=== PATIENT | female | born 1965 | race Caucasian/White ===

== ENCOUNTER 2025-04-10 08:57 | Outpatient (RCR) | payer MEDICARE, MEDICAID, SELFPAY ==
--- NOTE | 2025-04-10 13:03 | CTCFLWUP_ITS ---
Patient: AYDEE LAI : 1965 Page 2 of 2 FOLLOW UP NOTE DATE OF SERVICE: 04/10/2025 NAME: AYDEE LAI ACCOUNT: [id number] : 1965 AGE: 59 INTERVAL HISTORY: Patient is 59-year-old with complaints of appetite loss nonspecific pain and pain over her old surgical site. Patient was diagnosed with colon cancer in 2019 after she had complained for abdominal pain for 5 years. She was found to have ulcerated mass with stricture and underwent resection. Patient says that since her surgery she has never felt the same. She has not done anything colonoscopy since then. Patient want to follow-up with the gastroenterology. 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 Status post sigmoid colectomy (11/15/2019) DATE OF DIAGNOSIS: 11/15/2019 STAGE/TNM: Stage I T2 N0 well-differentiated adenocarcinoma of the sigmoid colon status post sigmoid colectomy completed on 11/15/2019 TREATMENT HISTORY: Care?Plan Start?Date Cycle Day Intent HISTORY OF PRESENT ILLNESS: Aydee Lai is a 54-year-old ENG speaking female with history of fibromyalgia, osteoarthritis as well as fatigue has been having rectal bleeding for about 6 to 8 months. She was also having significant constipation for last few years. Has been suffering from intermittent abdominal pain for last 5 years. 10/08/2019: Patient had colonoscopy. She was noted to have an ulcerated mass with stricturing of the sigmoid colon about 40 to 45 cm from the anal verge. Biopsy of this lesion showed well-differentiated invasive adenocarcinoma. 11/02/2019: PET CT scan?negative for metastatic disease. 11/11/2019: CT scan of the abdomen and pelvis with IV contrast?11/14/2019: Patient had partial colectomy, coloproctostomy, transverse abdominis plane block as well as umbilical hernia repair. Her postoperative course was uneventful. OTHER MEDICAL HISTORY/CONDITIONS: Colon cancer - dx 2019 Radiculopathy Fibromalgia Frequent UTI's Colon resection -- 2020 Cholecystectomy - Right carpal tunnel surgery FAMILY HISTORY: Children:?Son?-?Leukemia?-?dx?11 Cancer History:?Mat grandmother - uterine - dx 60's; Pat 1st cousin - colon SOCIAL HISTORY: Occupational?History:?Unemployed Education?Level:?Completed High School Marital?Status:?Single Tobacco Use:?Quit 10yrs ago - Smoked for 2-yrs - 1PPD ETOH?Use:?Denies Drug?Note:?Denies Social?History?Note:?Dtr?lives?with?pt LOAN MANAGER HISTORY: Menarche?-?Age:?14 Menopause:?2018 :?3 Live?Births:?3 Age?1st?:?19 MEDICATIONS: 1. pregabalin - 50 mg 1 Capsule Twice a Day 2. Tylenol Extra Strength - 500 mg 1 Capsule Daily Medications Last Reconciled by Loren Alarcon RN on 04/10/2025 ALLERGIES: Penicillins; adhesive tape; MORPHINE SULFATE/PF REVIEW OF SYSTEMS: A complete 14-point review of systems was performed and is negative except as noted in interval history. PHYSICAL EXAMINATION: VITAL SIGNS: Temperature?98.6, B/P?152/79, Height?68?inches, Oxygen?Saturation?97% Weight?181?lbs PAIN: 2 - Mild pain ECOG Performance Status: 2 - Symptomatic; ambulatory; capable of self-care; >50% of waking hrs. not in bed GENERAL APPEARANCE: Appears well, in no apparent distress, appropriately interactive. HEENT: Normocephalic, no temporal wasting, normal conjunctiva, no scleral icterus, normal hearing, lips without lesions, neck normal range of motion. CARDIOVASCULAR: Not assessed. PULMONARY: Normal respiratory effort, no respiratory distress or use of accessory muscles, speaking in full sentences, no tachypnea. EXTREMITIES: Patient walks with a cane SKIN: Normal skin appearance. NEUROLOGIC: Alert and oriented x4. PSHYCHIATRIC: Appropriate affect, mood normal, behavior normal, intact thought and speech. LABORATORY DATA: I have personally reviewed and interpreted each of the patient?s relevant lab tests, abnormal findings are below: Date 04/10/25 ??WHITE?BLOOD?COUNT?(Thou/mm3) 6.7 ??RED?BLOOD?COUNT?(Miln/mm3) 4.77 ??HEMOGLOBIN?(gm/dl) 14.7 ??HEMATOCRIT?(%) 42.2 ??PLATELET?COUNT?(Thou/mm3) 274 ??NEUTROPHILS?%,?AUTO?(%) 51 ??LYMPH?%,?AUTO?(%) 37 ??NEUTROPHILS,?AUTO?(Thou/mm3) 3.4 ??CEA?(O*)?(ng/ml) <?0.0?L ??RETICULOCYTE?ABSOLUTE?AUTO?(Biln/L) 109.7?H ??TOTAL?IRON?BINDING?CAP?(S*)?(mcg/dL) 242?L ??UNBOUND?IBC?(mcg/dL) 162?L ASSESSMENT/PLAN: 1. 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 Status post sigmoid colectomy. Patient has recovered very well from the surgery. No clinical evidence of recurrence. 2. Fibromyalgia 3. Osteoarthritis. 4. 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 fatty liver Evaluate and follow-up on the labs and imaging Advised to follow-up with GI for colonoscopy Advised to follow-up with the primary care Will consider sending her for neurosurgical evaluation if her scans are negative with no recurrence of cancer ORDERS: Order # Description [id number] CT Scan + Chest + Abdomen and Pelvis + With W/O Contrast [id number] CEA [id number] Ferritin + Iron Panel + Folic Acid; Serum + Vitamin B-12 + Reticulocyte Count [id number] Follow Up 2 Months RETURN TO CLINIC: I reviewed the diagnosis, prognosis, and recommended treatment/procedure options with the patient (and/or their legal loss prevention representative), including the potential benefits, risks, side effects and alternative therapies. We also discussed the option of no treatment and the possibility of clinical trial participation, if applicable. All questions were addressed, and they demonstrated understanding. They provided informed consent to proceed with the proposed plan of care. BILLING AND COMPLIANCE: I reviewed external records from providers outside my specialty as summarized above. I spent a total of 50 minutes on this patient?s care on the day of their visit excluding time spent related to any billed procedures. This time includes time spent with the patient as well as time spent documenting in the medical record, reviewing patients records and tests, obtaining history, placing orders, communicating with other healthcare professionals, counseling the patient, family or caregiver, and/or care coordination for the diagnoses above. Electronically Signed by: Cristopher Callahan MD T: 1:01 PM CC: Cherrie?Hari? PCP: Cherrie Noriega Referring: Cherrie Noriega This document was completed utilizing speech recognition software. Grammatical errors, random word insertions, pronoun errors, and incomplete sentences are an occasional consequence of this system due to software limitations, ambient noise, and hardware issues. Any formal questions or concerns about the content, text or information contained within the body of this dictation should be directly addressed to the provider for clarification.
== END 2025-05-07 23:59 | disposition home or self-care (01) ==
LOC: SCTC 08:57
PROVIDERS: PCP Nurse Practitioner Primary Care; Referring Provider Nurse Practitioner Primary Care; Visit Provider Internal Medicine Hematology & Oncology
DX: Z08 Encounter for follow-up examination after completed treatment for malignant neoplasm (principal); Z85.038 Personal history of other malignant neoplasm of large intestine; Z90.49 Acquired absence of other specified parts of digestive tract; M79.7 Fibromyalgia; M19.90 Unspecified osteoarthritis, unspecified site; D64.9 Anemia, unspecified; K76.0 Fatty (change of) liver, not elsewhere classified; M54.10 Radiculopathy, site unspecified
CPT/HCPCS: 36415; 80053; 82378; 82607; 82728; 82746; 83540; 83550; 85025; 85046; 99213; G0463

== ENCOUNTER → 2025-04-10 | Outpatient (CLI) | payer MEDICARE, MEDICAID, SELFPAY ==
[2025-04-10 11:28] LABS: Basophils # (Auto) 0.0 Thou/mm3 (0.0-0.2); Basophils % (Auto) 0 % (0-2.5); Eosinophils # (Auto) 0.2 Thou/mm3 (0.0-0.5); Eosinophils % (Auto) 3 % (0-10); Hematocrit 42.2 % (36.0-46.0); Hemoglobin 14.7 g/dL (12.0-16.0); Immature Granulocytes Auto 0.02 Thou/mm3 (0.00-0.00); Immature Reticulocyte Fraction 8.2 % (3.0-15.9); Lymphocytes # (Auto) 2.5 Thou/mm3 (1.0-4.8); Lymphocytes % (Auto) 37 % (10-50); Mean Corpuscular HGB Conc 34.8 g/dl (31.0-37.0); Mean Corpuscular Hemoglobin 30.8 pg (25.0-35.0); Mean Corpuscular Volume 89 fL (80-100); Monocytes # (Auto) 0.6 Thou/mm3 (0.0-0.8); Monocytes % (Auto) 9 % (0-12); Neutrophils # (Auto) 3.4 Thou/mm3 (1.8-7.7); Neutrophils % (Auto) 51 % (37-80); Nucleated Red Blood Cell # 0.00 Thou/mm3 (0.00-0.00); Nucleated Red Blood Cell % 0 /100 WBC (0); Platelet Count 274 Thou/mm3 (140-440); RDW Standard Deviation 39.0 fL (36.4-46.3); Red Blood Count 4.77 Miln/mm3 (4.00-5.20); Reticulocyte % (Auto) 2.3 % (0.5-1.5); Reticulocyte Absolute Auto 109.7 Biln/L (25.0-75.0); Reticulocyte Hgb Content 34.3 pg (28.0-35.0); White Blood Count 6.7 Thou/mm3 (3.6-11.0)
[2025-04-10 11:42] LABS: Ferritin 285 ng/mL (7.3-270.7); Iron 80 mcg/dL (50-170); Percent Iron Saturation 33 % (20-55); Total Iron Binding Capacity 242 mcg/dL (250-425); Unsaturated Iron Binding 162 (225-295)
[2025-04-10 11:44] LABS: Alanine Aminotransferase 25 U/L (10-49); Albumin, Serum 4.5 gm/dL (3.5-5.0); Albumin/Globulin Ratio 2.1 (1.2-2.2); Alkaline Phosphatase 75 U/L (46-116); Anion Gap 12 (7-16); Aspartate Amino Transferase 18 U/L (0-34); BUN/Creatinine Ratio 19 Ratio (12-20); Bilirubin,Total 0.6 mg/dL (0.3-1.2); Blood Urea Nitrogen 15 mg/dL (9-23); Calcium 10.2 mg/dL (8.3-10.6); Calcium (Corrected) 10.2 mg/dL (8.5-10.1); Carbon Dioxide 26.4 mMol/L (20.0-31.0); Chloride 108 mMol/L (98-107); Creatinine (Component) 0.8 mg/dL (0.6-1.3); Globulin 2.1 gm/dL (2.3-3.5); Glucose 88 mg/dL (74-106); Osmolality,Calculated 290 (275-295); Potassium 4.4 mMol/L (3.4-5.1); Sodium 146 mMol/L (136-145); Total Protein 6.6 gm/dL (5.7-8.2); eGFR > 60 See Note
[2025-04-10 11:48] LABS: Carcinoembryonic Antigen < 0.0 ng/mL (0.0-5.0); Folate 14.03 ng/mL (>5.38); Vitamin B12 543 pg/mL (211-911)
== END | disposition home or self-care (01) ==
PROVIDERS: PCP Physician Assistant; Referring Provider Internal Medicine Hematology & Oncology; Visit Provider Internal Medicine Hematology & Oncology
DX: C18.7 Malignant neoplasm of sigmoid colon (principal)
CPT/HCPCS: 36415; 80053; 82378; 82607; 82728; 82746; 83540; 83550; 85025; 85046

== ENCOUNTER → 2025-05-17 | Outpatient (CLI) | payer MEDICARE, MEDICAID, SELFPAY ==
[2025-05-17 10:20] LABS: Alanine Aminotransferase 14 U/L (10-49); Albumin, Serum 4.8 gm/dL (3.5-5.0); Albumin/Globulin Ratio 1.7 (1.2-2.2); Alkaline Phosphatase 77 U/L (46-116); Anion Gap 11 (7-16); Aspartate Amino Transferase 17 U/L (0-34); BUN/Creatinine Ratio 17 Ratio (12-20); Bilirubin,Total 0.9 mg/dL (0.3-1.2); Blood Urea Nitrogen 15 mg/dL (9-23); Calcium 10.1 mg/dL (8.3-10.6); Calcium (Corrected) 10.1 mg/dL (8.5-10.1); Carbon Dioxide 25.4 mMol/L (20.0-31.0); Chloride 106 mMol/L (98-107); Creatinine (Component) 0.9 mg/dL (0.6-1.3); Globulin 2.9 gm/dL (2.3-3.5); Glucose 94 mg/dL (74-106); Osmolality,Calculated 283 (275-295); Potassium 4.1 mMol/L (3.4-5.1); Sodium 142 mMol/L (136-145); Total Protein 7.7 gm/dL (5.7-8.2); eGFR > 60 See Note
== END | disposition home or self-care (01) ==
LOC: SCTO 08:57
PROVIDERS: PCP Physician Assistant; Referring Provider Internal Medicine Hematology & Oncology; Visit Provider Internal Medicine Hematology & Oncology
DX: C18.7 Malignant neoplasm of sigmoid colon (principal)
CPT/HCPCS: 36415; 80053

== ENCOUNTER → 2025-05-28 | Outpatient (CLI) | payer MEDICARE, MEDICAID, SELFPAY ==
--- NOTE | 2025-05-28 14:30 | XR_ITS ---
Examination: CT chest with intravenous contrast CT abdomen with intravenous contrast CT pelvis with intravenous contrast 2-D coronal and sagittal reconstructions Time of exam: May 28, 2025, 1446 hours, comparison CT abdomen pelvis June 02, 2024, CT abdomen pelvis January 25, 2022 INDICATIONS: Diagnosis malignant neoplasm of sigmoid colon 2019, onset congestion lower chest pain pelvic pain beginning 1 year ago CTDI: vol (mGy) : 22.7 DLP: (mGycm): 886 Technique: Multiple axial images of the chest, abdomen and pelvis with intravenous contrast, 3.0 mm slice thickness. Images obtained post intravenous injection Isovue 370 60 cc. 2-D sagittal and coronal reconstructions. Low dose protocols were performed. One or more of the following dose reduction techniques were used; automated exposure control, adjustment of the mA and/or KV according to patient size, use of iterative reconstruction technique. Findings: 6 mm right thyroid nodule No thoracic aortic aneurysm dilatation or dissection Negative for pulmonary artery emboli No paratracheal or tracheobronchial or bronchopulmonary adenopathy No interval pneumonia or pulmonary edema pleural disease or pulmonary nodules No visualized liver or splenic lesion Absent gallbladder No pancreatic or adrenal mass No interval abdominal or pelvic lymphadenopathy No hydronephrosis 4.3 cm fat-containing umbilical hernia Normal appendix No pelvic mass Atrophic uterus Bladder intact IMPRESSION: No mediastinal lymphadenopathy No pneumonia, pulmonary edema, pleural disease or pulmonary nodules No interval abdominal or pelvic lymphadenopathy Normal appendix No renal or ureteral calculi, no hydronephrosis No acute process in the abdomen or pelvis
== END | disposition home or self-care (01) ==
LOC: SCAT 13:42
PROVIDERS: PCP Physician Assistant; Referring Provider Internal Medicine Hematology & Oncology; Visit Provider Internal Medicine Hematology & Oncology
DX: R09.89 Other specified symptoms and signs involving the circulatory and respiratory systems (principal); R07.9 Chest pain, unspecified; R10.20 Pelvic and perineal pain unspecified side; C18.7 Malignant neoplasm of sigmoid colon
CPT/HCPCS: 71260; 74177; A4649; Q9967

== ENCOUNTER 2025-06-10 10:43 | Outpatient (RCR) | payer MEDICARE, MEDICAID, SELFPAY ==
--- NOTE | 2025-06-10 11:34 | CTCFLWUP_ITS ---
Patient: AYDEE LAI : 1965 Page 3 of 5 FOLLOW UP NOTE DATE OF SERVICE: 06/10/2025 NAME: AYDEE LAI ACCOUNT: [id number] : 1965 AGE: 59 INTERVAL HISTORY: Patient is 59-year-old with complaints of appetite loss nonspecific pain and pain over her old surgical site. Patient was diagnosed with colon cancer in 2019 after she had complained for abdominal pain for 5 years. She was found to have ulcerated mass with stricture and underwent resection. Patient says that since her surgery she has never felt the same. She has not done anything colonoscopy since then. Patient want to follow-up with the gastroenterology. 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 Status post sigmoid colectomy (11/15/2019) DATE OF DIAGNOSIS: 11/15/2019 STAGE/TNM: Stage I T2 N0 well-differentiated adenocarcinoma of the sigmoid colon status post sigmoid colectomy completed on 11/15/2019 TREATMENT HISTORY: Care?Plan Start?Date Cycle Day Intent HISTORY OF PRESENT ILLNESS: Aydee Lai is a 59-year-old ENG speaking female with history of fibromyalgia, osteoarthritis as well as fatigue has been having rectal bleeding for about 6 to 8 months. She was also having significant constipation for last few years. Has been suffering from intermittent abdominal pain for last 5 years. 10/08/2019: Patient had colonoscopy. She was noted to have an ulcerated mass with stricturing of the sigmoid colon about 40 to 45 cm from the anal verge. Biopsy of this lesion showed well-differentiated invasive adenocarcinoma. 11/02/2019: PET CT scan?negative for metastatic disease. 11/11/2019: CT scan of the abdomen and pelvis with IV contrast?11/14/2019: Patient had partial colectomy, coloproctostomy, transverse abdominis plane block as well as umbilical hernia repair. Her postoperative course was uneventful. 05/28/2025 No mediastinal lymphadenopathy No pneumonia, pulmonary edema, pleural disease or pulmonary nodules No interval abdominal or pelvic lymphadenopathy Normal appendix No renal or ureteral calculi, no hydronephrosis No acute process in the abdomen or pelvis OTHER MEDICAL HISTORY/CONDITIONS: Colon cancer - dx 2019 Radiculopathy Fibromalgia Frequent UTI's Colon resection -- 2019 Cholecystectomy - Right carpal tunnel surgery FAMILY HISTORY: Children:?Son?-?Leukemia?-?dx?11 Cancer History:?Mat grandmother - uterine - dx 60's; Pat 1st cousin - colon SOCIAL HISTORY: Occupational?History:?Unemployed Education?Level:?Completed High School Marital?Status:?Single Tobacco Use:?Quit 10yrs ago - Smoked for 2-yrs - 1PPD ETOH?Use:?Denies Drug?Note:?Denies Social?History?Note:?Dtr?lives?with?pt HEALTH LEAD HISTORY: Menarche?-?Age:?14 Menopause:?2018 :?3 Live?Births:?3 Age?1st?:?19 MEDICATIONS: 1. pregabalin - 50 mg 1 Capsule Twice a Day 2. Tylenol Extra Strength - 500 mg 1 Capsule Daily Medications Last Reconciled by Loren Alarcon RN on 04/10/2025 ALLERGIES: Penicillins; adhesive tape; MORPHINE SULFATE/PF REVIEW OF SYSTEMS: A complete 14-point review of systems was performed and is negative except as noted in interval history. PHYSICAL EXAMINATION: VITAL SIGNS: PAIN: 0 - No pain ECOG Performance Status: 0 - Asymptomatic and fully active GENERAL APPEARANCE: Appears well, in no apparent distress, appropriately interactive. HEENT: Normocephalic, no temporal wasting, normal conjunctiva, no scleral icterus, normal hearing, lips without lesions, neck normal range of motion. CARDIOVASCULAR: Not assessed. PULMONARY: Normal respiratory effort, no respiratory distress or use of accessory muscles, speaking in full sentences, no tachypnea. EXTREMITIES: Patient walks with a cane SKIN: Normal skin appearance. NEUROLOGIC: Alert and oriented x4. PSHYCHIATRIC: Appropriate affect, mood normal, behavior normal, intact thought and speech. LABORATORY DATA: I have personally reviewed and interpreted each of the patient?s relevant lab tests, abnormal findings are below: Date 04/10/25 05/17/25 ??WHITE?BLOOD?COUNT?(Thou/mm3) 6.7 ? ??RED?BLOOD?COUNT?(Miln/mm3) 4.77 ? ??HEMOGLOBIN?(gm/dl) 14.7 ? ??HEMATOCRIT?(%) 42.2 ? ??PLATELET?COUNT?(Thou/mm3) 274 ? ??NEUTROPHILS?%,?AUTO?(%) 51 ? ??LYMPH?%,?AUTO?(%) 37 ? ??NEUTROPHILS,?AUTO?(Thou/mm3) 3.4 ? ??GLUCOSE,RANDOM?(mg/dL) ? 94 ??BLOOD?UREA?NITROGEN?(mg/dL) ? 15 ??CREATININE?(mg/dL) ? 0.90 ??SODIUM?(mmol/L) ? 142 ??POTASSIUM?(mmol/L) ? 4.1 ??CHLORIDE?(mmol/L) ? 106 ??CrCl?(CandG)?(ml/min) ? 74.80 ??AST/SGOT?(Unit/L) ? 17 ??ALT/SGPT?(Unit/L) ? 14 ??ALKALINE?PHOSPHATASE?(Unit/L) ? 77 ??BILIRUBIN,?TOTAL?(mg/dL) ? 0.9 ??PROTEIN?TOTAL?(gm/dl) ? 7.7 ??ALBUMIN,?SERUM?(gm/dl) ? 4.8 ??GLOBULIN?(gm/dl) ? 2.9 ??ALBUMIN/GLOBULIN?RATIO ? 1.7 ??CALCIUM,?SERUM?(mg/dL) ? 10.1 ??CALCIUM?SERUM?(CORRECTED)?(mg/dL) ? 10.1 ??RETICULOCYTE?ABSOLUTE?AUTO?(Biln/L) 109.7?H ? ??TOTAL?IRON?BINDING?CAP?(S*)?(mcg/dL) 242?L ? ??UNBOUND?IBC?(mcg/dL) 162?L ? ASSESSMENT/PLAN: 1. 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 Status post sigmoid colectomy. Patient has recovered very well from the surgery. No clinical evidence of recurrence. 2. Fibromyalgia 3. Osteoarthritis. 4. Radiculopathies Patient is having multiple complaints and reestablishing care after 3 years of absence from our clinic CT scan is normal Iron studies no deficient ORDERS: Order # Description [id number] Comprehensive Metabolic Panel - 12 + CBC with Auto Diff + CEA + MD Follow Up 6 Month RETURN TO CLINIC: I reviewed the diagnosis, prognosis, and recommended treatment/procedure options with the patient (and/or their legal leasing representative), including the potential benefits, risks, side effects and alternative therapies. We also discussed the option of no treatment and the possibility of clinical trial participation, if applicable. All questions were addressed, and they demonstrated understanding. They provided informed consent to proceed with the proposed plan of care. BILLING AND COMPLIANCE: I reviewed external records from providers outside my specialty as summarized above. I spent a total of 50 minutes on this patient?s care on the day of their visit excluding time spent related to any billed procedures. This time includes time spent with the patient as well as time spent documenting in the medical record, reviewing patients records and tests, obtaining history, placing orders, communicating with other healthcare professionals, counseling the patient, family or caregiver, and/or care coordination for the diagnoses above. Electronically Signed by: Cristopher Callahan MD T: 11:32 AM CC: Cherrie?NADINE Noriega PCP: Cherrie Noriega Referring: Cherrie Noriega This document was completed utilizing speech recognition software. Grammatical errors, random word insertions, pronoun errors, and incomplete sentences are an occasional consequence of this system due to software limitations, ambient noise, and hardware issues. Any formal questions or concerns about the content, text or information contained within the body of this dictation should be directly addressed to the provider for clarification.
== END 2025-07-07 23:59 | disposition home or self-care (01) ==
LOC: SCTC 10:43
PROVIDERS: PCP Nurse Practitioner Primary Care; Referring Provider Nurse Practitioner Primary Care; Visit Provider Internal Medicine Hematology & Oncology
DX: Z08 Encounter for follow-up examination after completed treatment for malignant neoplasm (principal); Z85.038 Personal history of other malignant neoplasm of large intestine; Z90.49 Acquired absence of other specified parts of digestive tract; M79.7 Fibromyalgia; M19.90 Unspecified osteoarthritis, unspecified site; M54.10 Radiculopathy, site unspecified
CPT/HCPCS: 99212; G0463